=== PATIENT | male | born 1960 | race Caucasian/White ===

== ENCOUNTER 2017-10-20 05:51 | Day surgery (SDC) | payer BC, OTHER ==
[~2017-10-20] VITALS: Ht 177.8 cm; Wt 78.9 kg
--- NOTE | ~2017-10-20 | EKG ---
[address] [address] ELECTROCARDIOGRAM REPORT Name: MARLYN BO Room #: 150-10 [facility].#: [id number] Admission: 10/20/17 Attend Phys: Vaughn Cabral MD, F Discharge: Date of : 56 Report #: [id number] THIS REPORT FOR: //name// [facility] Test Date: 2017-10-20 Test Time: 12:22:34 Pat Name: MARLYN BO Department: Room: 150 10 Gender: M Professional Services Manager: BRYSON : 1960 Requested By: Vaughn Cabral Order Number: [id number] MD: Dayton Kurtz Measurements Intervals [place] Rate: 65 P: 52 DC: 144 QRS: 40 QRSD: 90 T: 48 QT: 400 QTc: 416 Interpretive Statements Sinus rhythm Borderline low voltage, extremity leads Compared to ECG 04/08/2013 09:45:55 No significant changes Electronically Signed On 10-20-2017 16:33:10 CDT by Dayton Kurtz [email or web address] <ELECTRONICALLY SIGNED> By: Dayton Kurtz MD, [facility] 10/20/17 1633 1222 122 Dayton Kurtz MD, [facility] /EPI
--- NOTE | ~2017-10-20 | O ---
[facility] [place] [address] OPERATIVE REPORT Name: MARLYN BO Room #: DEP [facility] M.R.#: [id number] Admission: 10/20/17 Attend Phys: Vaughn Cabral MD, F Discharge: 10/20/17 Date of : 56 Report #: [id number] THIS REPORT FOR: //name// CC: Michael Goss DATE OF SERVICE: 10/20/2017 SURGEON: Vaughn Cabral MD [employer] CASHIER: MALATHI Zamora PREOPERATIVE DIAGNOSIS: Left inguinal hernia. POSTOPERATIVE DIAGNOSIS: Indirect left inguinal hernia. PROCEDURE: Open repair of indirect left inguinal hernia with Surgimesh plug and onlay patch. ANESTHESIA: General endotracheal anesthesia and local anesthetic. ESTIMATED BLOOD LOSS: Minimal, 5 mL. SPECIMEN: None. COMPLICATIONS: None appreciated. INDICATIONS FOR PROCEDURE: This is a 57-year-old male patient of Dr. Keshawn Yen who was seen for a left inguinal bulge present over the past several months. The patient denies a change in his bowel habits and reports some pain associated with this hernia, worse with abdominal straining. He has a history of a previous laparoscopic right inguinal hernia repair in 2012. On exam, he had a reducible left inguinal hernia. He presents today for open repair of his left inguinal hernia as the laparoscopic approach is not indicated (due to a previous laparoscopic repair). OPERATIVE FINDINGS: The patient had an indirect hernia without evidence for a femoral or direct hernia. There was no bowel involvement. DESCRIPTION OF PROCEDURE IN DETAIL: After the risks, benefits and expectations of the operation were discussed in detail with the patient, informed consent was obtained. The patient was identified in the preoperative holding area. He was given IV antibiotics as documented in the chart in line with [facility] metrics. The patient was then taken to the operating room and he was placed in the supine [address] [address] OPERATIVE REPORT Name: MARLYN BO Room #: DEP [facility].R.#: [id number] Admission: 10/20/17 Attend Phys: Vaughn Cabral MD, F Discharge: 10/20/17 Date of : 56 Report #: [id number] position. SCDs were placed on the patient's bilateral lower extremities and pneumatic compression was initiated. The patient was then given IV sedation and he was intubated without incident. His abdomen, groins and genitalia were prepped and draped in the standard sterile fashion. A time-out was performed to identify the correct patient and procedure. Local anesthetic was infiltrated into the skin and subcutaneous tissue in the left groin skin following the skin lines in the area of the planned incision. A sharp #10 blade scalpel was then used to make the incision. Electrocautery was used to dissect through subcutaneous tissue down to Azam's fascia, which was then divided along the length of the incision. This then exposed the external oblique fascia. A small césar was made in the external oblique fascia and the fascia was divided along the length of its fibers to the external inguinal ring. The fascia was then divided slightly laterally. Hemostats were placed on each leaf of the external oblique fascia. The spermatic cord was then encircled with a Giuliana drain. Dissection was carried out to identify the indirect hernia sac running alongside the spermatic cord. This was dissected free. A small opening was made in the sac to reduce the contents. There was no bowel involvement. The sac was then closed with a 0 Vicryl suture. A Surgimesh plug was placed into the indirect defect and secured to the transversalis fascia and transversus abdominis muscle with interrupted 0 Prolene sutures. The Surgimesh patch was then placed and tacked at the pubic tubercle. The superior/medial aspect of the mesh was approximated to the underlying tissue (transversalis fascia and transversus abdominis muscle) with a running 0 Prolene suture. Similarly, the inferior edge of the mesh was approximated to the shelving edge of the inguinal ligament. The mesh had been tailored to accommodate for the spermatic cord. The tails of the mesh were approximated to each other and to the underlying tissue with an 0 Prolene suture. The Wheaton drain was then removed. The external oblique fascia was closed with a running 2-0 Vicryl suture. Interrupted 3-0 Vicryl sutures were used to approximate Azam's fascia. A running 4-0 Monocryl subcuticular suture and Dermabond were used to close the skin. The patient tolerated the procedure well. He was awakened, extubated, and taken to recovery room in stable condition with no apparent intraoperative complications. By: [id number] Vaughn Cabral MD, FACS /nt
[~2017-10-20 05:51] MED LIST: COZAAR 50 MG TA50 M2 PO; LIPITOR10 MG PO; LISINOPRIL20 MG PO; MULTIVITAMINS1 EAC7 PO
[2017-10-20 13:11] VITALS: BP 149/86
[2017-10-20] MEDS ORDERED: NEURONTIN 300300 M1 PO (14:43)
[2017-10-20] MEDS ORDERED: HYDROCODONE-AP1 EAC6 PO (14:43)
[2017-10-20] MEDS ORDERED: SENNA-S TABLET1 EACH PO (14:43)
[2017-10-20 16:33] VITALS: BP 149/86
== END 2017-10-20 16:42 | disposition home or self-care (01) ==
LOC: TBA 05:51 → OR 05:51
DX: K40.90 Unilateral inguinal hernia, without obstruction or gangrene, not specified as recurrent (principal); I10 Essential (primary) hypertension; E78.5 Hyperlipidemia, unspecified; Z98.890 Other specified postprocedural states; F17.210 Nicotine dependence, cigarettes, uncomplicated; Z79.891 Long term (current) use of opiate analgesic; Z79.899 Other long term (current) drug therapy
CPT/HCPCS: 50010; 50101; 50386; 50417; 50788; 54118; 56524; 56525; 56526; 62110; 62900; 64037; 70005